=== PATIENT | male | born 1985 | race Caucasian/White ===

== ENCOUNTER 2017-10-21 09:42 | Emergency (ER) | payer SELFPAY ==
[2017-10-21] MEDS ORDERED: Ondansetron ODT 8 MG TAB ONE (10:42)
--- NOTE | 2017-11-06 15:12 | EKG ---
Test Reason : N/V Blood Pressure : / mmHG Vent. Rate : 060 BPM Atrial Rate : 060 BPM P-R Int : 154 ms QRS Dur : 084 ms QT Int : 412 ms P-R-T Axes : -01 046 044 degrees QTc Int : 412 ms Normal sinus rhythm Normal ECG Confirmed by NIRAJ WASHINGTON ([id number]), news assignment editor ZAKIA REECE ([id number]) on 11/06/2017 3:12:18 PM Referred By: DR WASHINGTON Confirmed By:NIRAJ WASHINGTON
== END 2017-10-21 12:27 | disposition home or self-care (01) ==
LOC: ERS 09:42
DX: R11.2 Nausea with vomiting, unspecified (principal)
CPT/HCPCS: 93005

== ENCOUNTER 2018-10-26 08:48 | Emergency (ER) | payer SELFPAY | END 2018-10-26 09:48 | disposition home or self-care (01) | LOC: ERS 08:48 | DX: J06.9 Acute upper respiratory infection, unspecified (principal) | CPT/HCPCS: 99283 ==

== ENCOUNTER 2020-10-02 13:00 | Emergency (ER) | payer OTHER, SELFPAY ==
[2020-10-02 18:30] LABS: SARS-CoV-2 PCR by NAA Not Detected (NotDetected)
== END 2020-10-02 14:18 | disposition home or self-care (01) ==
LOC: ERS 13:00
DX: I10 Essential (primary) hypertension (principal); Z20.822 Contact with and (suspected) exposure to COVID-19
CPT/HCPCS: 87635; 99283; U0003; U0005

== ENCOUNTER 2022-06-06 07:12 | Emergency (ER) | payer SELFPAY ==
[2022-06-06 08:05] LABS: #Basophils 0.1 thou/uL (0.0-0.2); #Eosinphils 0.9 thou/uL (0.0-0.7); #Lymphocytes 1.6 thou/uL (1.20-3.40); #Monocytes 0.8 thou/uL (0.11-0.59); #Neutrophils 5.8 thou/uL (1.40-6.50); %Basophils 0.7 % (0.0-1.0); %Eosinophils 10.3 % (0.0-10.0); %Lymphocytes 17.6 % (21.0-51.0); %Monocytes 8.4 % (0.0-10.0); Hemoglobin 15.9 g/dL (14.0-18.0); Mean Corpuscular HGB CONC 33.2 g/dL (32.0-36.0); Mean Corpuscular Hemoglobin 31.9 pg (27.0-31.0); Mean Platelet Volume 6.2 fL (7.4-10.4); Platelet Count 310 thou/uL (130-400); RBC Distribution Width 12.3 % (11.5-14.5); Red Blood Cell (RBC) Count 5.01 mill/uL (4.70-6.10); White Blood Cell (WBC) Count 9.2 thou/uL (4.8-10.8)
[2022-06-06] MEDS ORDERED: Ketorolac Tromethamine 30 MG/ML VIAL ONE (08:09)
[2022-06-06] MEDS ORDERED: Loperamide HCl 2 MG CAP ONE (08:09)
[2022-06-06] MEDS ORDERED: Ondansetron PF 4 MG/2 ML Vial ONE (08:09)
[2022-06-06] MEDS ORDERED: Loperamide HCl 2 MG CAP PO SCH (08:15)
[2022-06-06 08:31] LABS: ALT (SGPT) 26 U/L (8-55); AST (SGOT) 17 U/L (5-34); Albumin 3.6 g/dL (3.5-5.0); Alkaline Phosphatase 51 U/L (40-110); Anion Gap 12 mmol/L (10-20); BUN (Urea Nitrogen) 9 mg/dL (8.9-20.6); Bilirubin, Total 0.6 mg/dL (0.2-1.2); Calc. Creatinine Clearance 0 mL/min (70-130); Calcium 8.9 mg/dL (7.8-10.44); Carbon Dioxide 23 mmol/L (22-29); Chloride 107 mmol/L (98-107); Estimated GFR 124; Globulin 3.6 g/dL (2.4-3.5); Glucose 102 mg/dL (70-105); Lipase 37 U/L (8-78); Potassium 3.6 mmol/L (3.5-5.1); Protein, Total 7.2 g/dL (6.0-8.3); Sodium 138 mmol/L (136-145)
== END 2022-06-06 09:45 | disposition home or self-care (01) ==
LOC: ERS 07:12
DX: B34.9 Viral infection, unspecified (principal); R11.2 Nausea with vomiting, unspecified; Z20.822 Contact with and (suspected) exposure to COVID-19; Z87.891 Personal history of nicotine dependence
CPT/HCPCS: 71045; 80053; 83690; 85025; 93005; 96361; 96374; 96375; J1885; J2405; U0003; U0005

== ENCOUNTER 2024-01-19 13:08 | Emergency (ER) | payer SELFPAY ==
[2024-01-19] MEDS ORDERED: Ibuprofen 200 MG TAB ONE (16:21)
== END 2024-01-19 17:08 | disposition home or self-care (01) ==
LOC: ERS 13:08
DX: M77.32 Calcaneal spur, left foot (principal); M72.2 Plantar fascial fibromatosis; Z87.891 Personal history of nicotine dependence

== ENCOUNTER 2024-03-16 21:59 | Emergency (ER) | payer SELFPAY ==
[2024-03-17] MEDS ORDERED: Dicyclomine 20 MG TAB ONE (02:51)
[2024-03-17] MEDS ORDERED: Ondansetron PF 4 MG/2 ML Vial ONE (02:51)
[2024-03-17 03:40] LABS: #Basophils 0.05 10x3/uL (0.0-0.2); %Basophils 0.6 % (0.0-1.0); %Lymphocytes 30.8 % (21.0-51.0); %Monocytes 11.6 % (0.0-10.0); %Neutrophils 51.7 % (42.0-75.0); Hematocrit 53.1 % (42.0-52.0); Hemoglobin 17.9 g/dL (14.0-18.0); Mean Corpuscular HGB CONC 33.7 g/dL (32.0-36.0); Mean Corpuscular Hemoglobin 31.1 pg (27.0-31.0); Mean Corpuscular Volume 92.2 fL (78.0-98.0); Mean Platelet Volume 8.3 fL (7.4-10.4); Platelet Count 305 10x3/uL (130-400); RBC Distribution Width 13.2 % (11.5-14.5); Red Blood Cell (RBC) Count 5.76 mill/uL (4.70-6.10)
[2024-03-17 03:44] LABS: ALT (SGPT) 73 U/L (8-55); AST (SGOT) 50 U/L (5-34); Albumin 3.5 g/dL (3.5-5.0); Alkaline Phosphatase 55 U/L (40-110); Anion Gap 15 mmol/L (10-20); BUN (Urea Nitrogen) 13 mg/dL (8.9-20.6); Bilirubin, Total 0.3 mg/dL (0.2-1.2); Calc. Creatinine Clearance 0 mL/min (70-130); Calcium 9.6 mg/dL (7.8-10.44); Carbon Dioxide 21 mmol/L (22-29); Chloride 108 mmol/L (98-107); Estimated GFR 113; Globulin 4.2 g/dL (2.4-3.5); Glucose 104 mg/dL (70-105); Lipase 34 U/L (8-78); Magnesium 2.4 mg/dL (1.6-2.6); Potassium 3.9 mmol/L (3.5-5.1); Protein, Total 7.7 g/dL (6.0-8.3); Sodium 140 mmol/L (136-145)
[2024-03-17 04:52] LABS: Bacteria/HPF None Seen HPF (None Seen); Bilirubin Negative (Negative); Blood, Urine 3+ (Negative); CAUTI Indications for Culture Pelvic or flank pain; Clarity Clear (Clear); Glucose, Urine (Dipstick) Normal (Negative); Ketone, Urine Negative (Negative); Leukocyte Negative Leu/uL (Negative); Nitrite Negative (Negative); Protein, Urine (Dipstick) 30 mg/dL (Neg-Trace); Specific Gravity, Urine 1.029 (1.002-1.036); Squamous Epithelial 0-3 HPF (0-3); Urobilinogen Normal mg/dL (Less than 2); pH, Urine 5.5 (5.0-9.0)
[2024-03-17 04:53] LABS: Urine Culture Reflex No No
== END 2024-03-17 04:26 | disposition home or self-care (01) ==
LOC: ERS 21:59
DX: R11.2 Nausea with vomiting, unspecified (principal); R19.7 Diarrhea, unspecified; R10.84 Generalized abdominal pain; F17.210 Nicotine dependence, cigarettes, uncomplicated
CPT/HCPCS: 36415; 80053; 81001; 83690; 83735; 85025; 96361; 96374; J2405

== ENCOUNTER 2025-08-08 19:12 | Emergency (ER) | payer SELFPAY ==
[2025-08-08] MEDS ORDERED: Acetaminophen 500 MG TAB ONE (19:16)
[2025-08-08] MEDS ORDERED: Ibuprofen 800 MG TAB ONE (19:16)
[2025-08-08 22:21] LABS: #Basophils 0.03 10x3/uL (0.0-0.2); #Eosinophils Less than 0.03 10x3/uL (0.0-0.7); #Monocytes 0.70 10x3/uL (0.11-0.59); #Neutrophils 7.52 10x3/uL (1.40-6.50); %Basophils 0.3 % (0.0-1.0); %Eosinophils 0.0 % (0.0-10.0); %Lymphocytes 5.3 % (21.0-51.0); %Monocytes 8.0 % (0.0-10.0); %Neutrophils 86.1 % (42.0-75.0); Hematocrit 49.8 % (42.0-52.0); Hemoglobin 16.3 g/dL (14.0-18.0); Mean Corpuscular Hemoglobin 30.0 pg (27.0-31.0); Mean Corpuscular Volume 91.7 fL (78.0-98.0); Platelet Count 239 10x3/uL (130-400); Red Blood Cell (RBC) Count 5.43 mill/uL (4.70-6.10); White Blood Cell (WBC) Count 8.74 10x3/uL (4.8-10.8)
[2025-08-08 22:39] LABS: ALT (SGPT) 33 U/L (Less than 45); AST (SGOT) 46 U/L (11-34); Albumin 3.8 g/dL (3.1-4.5); Alkaline Phosphatase 52 U/L (40-110); Anion Gap 15 mmol/L (10-20); BUN (Urea Nitrogen) 13 mg/dL (8.9-20.6); Bilirubin, Total 0.3 mg/dL (0.3-1.2); Calc. Creatinine Clearance 0 mL/min (70-130); Calcium 8.7 mg/dL (7.8-10.44); Carbon Dioxide 20 mmol/L (22-29); Chloride 106 mmol/L (98-107); Globulin 3.9 g/dL (2.4-3.5); Glucose 111 mg/dL (70-105); Lipase 50 U/L (8-78); Potassium 3.8 mmol/L (3.5-5.1); Sodium 137 mmol/L (136-145)
[2025-08-09 01:45] LABS: Glucose, Urine (Dipstick) Negative (Negative); Leukocyte Negative (Negative); Protein, Urine (Dipstick) Trace mg/dL (Neg-Trace); Specific Gravity, Urine 1.025 (1.005-1.030)
[2025-08-09 02:00] LABS: Bacteria/HPF None Seen HPF (None Seen); CAUTI Indications for Culture Fever or rigors; RBC/HPF 21-50 HPF (0-3)
[2025-08-09] MEDS ORDERED: Acetaminophen 500 MG TAB ONE (02:16)
[2025-08-09 02:22] LABS: Urine Culture Reflex No No
[2025-08-09 02:26] LABS: Anion Gap 13 mmol/L (10-20); BUN (Urea Nitrogen) 14 mg/dL (8.9-20.6); Calc. Creatinine Clearance 0 mL/min (70-130); Calcium 7.9 mg/dL (7.8-10.44); Carbon Dioxide 21 mmol/L (22-29); Chloride 110 mmol/L (98-107); Glucose 128 mg/dL (70-105); Potassium 4.0 mmol/L (3.5-5.1); Sodium 140 mmol/L (136-145)
== END 2025-08-09 04:10 | disposition home or self-care (01) ==
LOC: ERS 19:12
DX: J18.9 Pneumonia, unspecified organism (principal); E86.0 Dehydration
CPT/HCPCS: 71046; 80048; 80053; 81001; 82550; 83605; 83690; 84484; 85025; 87040; 87428; 93005; 94640; 96361; 96374; 96375; J0295; J2919